=== PATIENT | male | born 1970 | race Caucasian/White ===

== ENCOUNTER 2019-11-17 10:16 | Emergency (ER) | payer BC ==
[~2019-11-17] VITALS: Ht 175.3 cm; Wt 131.1 kg
[2019-11-17 10:24] VITALS: BP_SYST 136
--- NOTE | 2019-11-17 10:24 | NUR ---
Patient to ER bed 04 to gown for evaluation. Side rails up.
--- NOTE | 2019-11-17 10:26 | NUR ---
Patient arrived in the ED c/o diarrhea since yesterday at 12:00 PM - Taking Peptobismol. Denied any chest pain or shortness of breath. Denied any fevers, chills, nausea or vomiting. Patient is alert and oriented x4, respirations even and unlabored, speaking in full sentences, and ambulating with a steady gait. VSS, denied any pain at this time. Informed of the approximate wait time. Instructed to notify ED staff for any changes in condition or worsening of symptoms. Patient verbalized understanding.
--- NOTE | 2019-11-17 10:54 | NUR ---
ER Dr. Drake at bedside examining patient.
[2019-11-17] MEDS ORDERED: DIPHENOXYLATE HCL/ATROP SULF 2.5 MG TAB PO ONE (11:00)
--- NOTE | 2019-11-17 11:02 | NUR ---
Administered Lomotil PO as ordered by Dr. Drake. Patient tolerated the medications well. See eMAR for details.
[2019-11-17 11:04] VITALS: BP_SYST 136
--- NOTE | 2019-11-17 11:07 | NUR ---
Patient given written and verbal discharge instructions and verbalizes understanding. ER MD discussed with patient the results and treatment provided. Patient in stable condition. ID arm band removed. Rx of Lomotil given. Patient educated on pain management and to follow up with PMD. Pain Scale 0/10. Opportunity for questions provided and answered. Medication side effect fact sheet provided.
== END 2019-11-17 11:07 | disposition home or self-care (01) ==
LOC: SED 10:16
DX: K52.9 Noninfective gastroenteritis and colitis, unspecified (principal)
CPT/HCPCS: 99283